=== PATIENT | male | born 1955 | race Caucasian/White ===

== ENCOUNTER → 2021-04-17 14:12 | Outpatient (CLI) | payer OTHER, SELFPAY ==
[2021-04-17 21:35] LABS: Prostate Specific Ag Screen 0.6 ng/ml (0.0-4.0)
== END ==
PROVIDERS: Urology; Visit Provider Pathology Anatomic Pathology & Clinical Pathology
DX: Z12.5 Encounter for screening for malignant neoplasm of prostate (principal)
CPT/HCPCS: G0103

== ENCOUNTER → 2021-07-06 14:31 | Outpatient (CLI) | payer OTHER, SELFPAY ==
--- NOTE | 2021-07-06 14:31 | CT_ITS ---
PROCEDURE: CT ABDOMEN PELVIS WO CON CLINICAL INDICATION: BACK PAIN Left-sided abdominal and back pain COMPARISON: No exams were available for comparison TECHNIQUE: Axial images obtained with sagittal and coronal reformats. All CT scans at the facility use one or more dose reduction, viz: automated exposure control, ma/kV adjustment per patient size (including targeted exams where dose is matched to indication, i.e. head), or iterative reconstruction technique. FINDINGS: LOWER THORAX: There is dense consolidation in the left lower lobe posteriorly with air bronchograms consistent with pneumonia with small effusion. Pulmonary fibrotic changes are present in the lung bases. There is irregular increased density in the left infrahilar region which may be due to some scarring. Severe COPD changes. 7 mm nodule in the right lower lobe anteriorly. Faint haziness noted in the right middle lobe and right lower lobe as well as left upper lobe. The mediastinum is shifted toward the left. Suggest chest CT with IV contrast for further evaluation. ABDOMEN & PELVIS: The liver, gallbladder, and adrenal glands have an unremarkable unenhanced appearance. There is mild splenomegaly at 14 cm. No obvious renal calculi or hydronephrosis. Hypodensity is present along the upper pole of the left kidney at 1 cm may be due to small renal cyst. The pancreas is not well delineated due to sparse of the abdominal fat and lack of IV and oral contrast. There is a moderate amount of retained colonic feces throughout the colon. No evidence of appendicitis. Moderate amount of retained particles are present within the stomach which has an elongated appearance. The stomach extends inferiorly below the level of the umbilicus. There is central prostate calcification. Mild thickening of the urinary bladder. No acute bony findings. Multiple unopacified bowel loops in the abdomen or pelvis which could obscure or mimic pathology. If symptoms persist, consider repeat exam with IV and oral contrast.. IMPRESSION: 1. Severe left lower lobe pneumonia with small effusion. An underlying pulmonary mass could easily be obscured. Consider follow-up following adequate treatment for pneumonia. 2. COPD with pulmonary fibrotic changes in the lung bases with scattered areas of scarring as well as a 7 mm nodule in the right lower lobe. 3. Moderate amount of retained colonic feces with elongation of the stomach extending below the level of the umbilicus. Moderate amount of retained material within the stomach. 4. Multiple unopacified bowel loops in the abdomen or pelvis which could obscure or mimic pathology. If symptoms persist, consider repeat exam with IV and oral contrast. Dictated by: Anibal Garland MD 07/06/2021 15:48 Anibal Garland MD in [facility] 07/06/2021 15:48
== END ==
PROVIDERS: PCP Urology; Visit Provider Urology
DX: M54.9 Dorsalgia, unspecified (principal)
CPT/HCPCS: 74176

== ENCOUNTER → 2021-08-09 09:23 | Outpatient (CLI) | payer OTHER, SELFPAY ==
[2021-08-09 09:57] LABS: Chloride 104 mmol/L (98-107); Potassium 4.7 mmoL/L (3.5-5.1); Sodium 141 mmol/L (136-145)
[2021-08-09 10:00] LABS: Anion Gap 12.7 mEq/L (5-15); Blood Urea Nitrogen 16 mg/dl (9-20); Calcium 8.7 mg/dl (8.4-10.2); Carbon Dioxide 29 mmol/L (22.0-30.0); Estimated Glomerular Filt Rate 114 ml/min (>60); GFR (African American) 138 ML/MIN (>60); Glucose 101 mg/dl (74-100)
== END ==
PROVIDERS: PCP Family Medicine; Visit Provider Family Medicine
DX: Z01.818 Encounter for other preprocedural examination (principal)
CPT/HCPCS: 80048

== ENCOUNTER → 2021-08-10 12:22 | Outpatient (CLI) | payer OTHER, SELFPAY ==
--- NOTE | 2021-08-10 12:23 | CT_ITS ---
PROCEDURE: CT CHEST W CON CLINCAL INDICATION: seen on CT abd/pelvis Abnormal finding on CT abdomen pelvis COMPARISON: CT CT ABDOMEN PELVIS WO CON from 07/06/2021 TECHNIQUE: IV Contrast: 75ml Isovue 370 Axial images obtained with sagittal and coronal reformats. All CT scans at the facility use one or more dose reduction, viz: automated exposure control, ma/kV adjustment per patient size (including targeted exams where dose is matched to indication, i.e. head), or iterative reconstruction technique. FINDINGS: Airways are clear. There is severe predominantly paraseptal though central lobular emphysema is also present. There is extensive scarring at bilateral lung apices. There are numerous nodules and ground-glass opacities throughout the right lung, the largest of which measures 2.4 centimeters in the anterior segment right upper lobe. There are numerous ground-glass opacities in the left upper lobe there are multiple nodules in the left upper lobe, the largest of which measures 3.2 x 2.7 cm within the superior lingular segment left upper lobe. There is a large left lower lobe pneumonia involving nearly the entire left lower lobe. There is a nodule in the pleural space measuring 7 millimeters which could represent a reactive lymph node although neoplasm is not excluded. There is mediastinal lymphadenopathy with numerous enlarged mediastinal lymph nodes, the largest of which measures 1.7 centimeters. Visualized abdominal contents appear unremarkable other than a left renal cyst. There are no definite vascular filling defects. There is a sclerotic lesion within the right pedicle of the T10, presumably a bone island although sclerotic metastasis could have a similar appearance. IMPRESSION: 1. Large left lower lobe pneumonia involving nearly the entire left lower lobe. 2. Numerous ground-glass opacities and solid pulmonary nodules, the largest in the superior lingular segment left upper lobe measuring 3.2cm. 3. Mediastinal lymphadenopathy. 4. Severe paraseptal and centrilobular emphysema. 5. Fleischner society guidelines (2017) recommend CT at 3-6 months then at 18-24 months. However, due to the most suspicious nodule and the large pneumonia, repeat CT chest without contrast in 1 month is recommended to further assess for pulmonary neoplasm after treatment for pneumonia. Dictated by: Monica Silva MD 08/10/2021 13:55 Monica Silva MD in [facility] 08/10/2021 13:55
== END ==
PROVIDERS: PCP Family Medicine; Visit Provider Family Medicine
DX: R91.8 Other nonspecific abnormal finding of lung field (principal)
CPT/HCPCS: 71260; Q9967

== ENCOUNTER 2021-08-28 09:02 | Emergency (ER) | payer OTHER, SELFPAY ==
[2021-08-28 09:03] VITALS: BP 158/107; PULSE 75; RESP 18; TEMP 37.1; O2SAT 95; BMI 20.6
[2021-08-28 09:21] VITALS: BMI 20.6
[2021-08-28 09:32] LABS: Microscopic, Urine URINE MICROSCOPIC (MICROSCOPIC)
[2021-08-28 09:38] LABS: Appearance,Urine CLEAR (Clear); Bilirubin,Urine Negative (Negative); Blood, Urine 2+ (Negative); Color,Urine YELLOW (Yellow); Glucose,Urine (UA) Negative (Negative); Ketones,Urine Negative (Negative); Leukocyte Esterase,Urine Negative (Negative); Nitrate,Urine Negative (Negative); PH,Urine 5.5 (5.0-8.5); Protein,Urine Negative (Negative); Specific Gravity, Urine >= 1.030 (1.005-1.030); Urobilinogen,Urine 0.2 EU/dl (0.2)
--- NOTE | 2021-08-28 09:45 | CT_ITS ---
PROCEDURE: CT LUMBAR SPINE WO CON CLINICAL HISTORY: back pain COMPARISON: CT CT ABDOMEN PELVIS WO CON from 07/06/[address] CHEST W CON from 08/10/2021 TECHNIQUE: Axial images obtained with sagittal and coronal reformats. All CT scans at the facility use one or more dose reduction, viz: automated exposure control, ma/kV adjustment per patient size (including targeted exams where dose is matched to indication, i.e. head), or iterative reconstruction technique. FINDINGS: There is normal alignment. T12-L1: Unremarkable. L1-L2: Minimal anterior left lateral endplate spurring. L2-L3: Minimal concentric bulging disc with facet and ligamentum hypertrophic change. Anterior osteophyte at L3 superiorly L3-L4: Mild concentric bulging disc. Small anterior osteophyte at L3-L4. L4-5: Mild bulging disc which is somewhat eccentric toward the right with mild right lateral recess narrowing. L5-S1: Mild concentric bulging disc. No acute fracture or dislocation. A fairly well-circumscribed lucent areas present in the L3 vertebral body anteriorly measuring approximately 1 cm benign-appearing. Follow-up may confirm stability. Moderate amount of retained colonic feces. A left-sided pleural effusion/consolidation noted incompletely imaged. IMPRESSION: No acute fracture. Multilevel lumbar spondylosis. Please see above for detailed description at each level. Dictated by: Anibal Garland MD 08/28/2021 10:19 Anibal Garland MD in [facility] 08/28/2021 10:19
[2021-08-28 09:52] LABS: Amorphous Sediment,Urine 1+ /lpf
[2021-08-28 10:03] LABS: Basophils # 0.1 K/mm3 (0-0.2); Basophils % 0.9 % (0.1-2.0); Eosinophils # 0.2 K/mm3 (0.0-0.4); Hematocrit 43.1 % (42.0-52.0); Lymphocytes # 1.5 K/mm3 (0.7-4.5); Lymphocytes % 13.8 % (10-50); Mean Corpuscular HGB Conc 32.6 g/dL (31.8-35.4); Mean Corpuscular Hemoglobin 27.5 pg (27.0-31.2); Mean Corpuscular Volume 84.4 fl (80-94); Mean Platelet Volume 7.6 fl (7.4-10.4); Monocytes # 0.5 K/mm3 (0.1-1.0); Monocytes % 4.7 % (1.7-9.3); Neutrophils # 8.7 K/mm3 (1.8-7.8); Neutrophils % 78.7 % (37.0-80.0); Platelet Count 379 K/mm3 (142-424); Red Cell Distribution Width 14.9 % (11.5-17.5); White Blood Count 11.1 K/mm3 (4.8-10.8)
[2021-08-28 10:12] LABS: Alanine Aminotransferase 12 U/L (12-78); Albumin Level 3.9 g/dl (3.5-5.0); Albumin/Globulin Ratio 1.1 (1.1-1.8); Alkaline Phosphatase 106 U/L (38-126); Anion Gap 11.4 mEq/L (5-15); Aspartate Amino Transferase 24 U/L (17-59); Bilirubin,Total 0.2 mg/dl (0.2-1.3); Blood Urea Nitrogen 18 mg/dl (9-20); Calcium 9.1 mg/dl (8.4-10.2); Carbon Dioxide 31 mmol/L (22.0-30.0); Chloride 100 mmol/L (98-107); Creatinine Clearance Estimated 79 mL/min (50-200); Estimated Glomerular Filt Rate 114 ml/min (>60); GFR (African American) 137 ML/MIN (>60); Globulin 3.4 g/dL (1.3-3.2); Glucose 91 mg/dl (74-100); Potassium 4.4 mmoL/L (3.5-5.1); Sodium 138 mmol/L (136-145); Total Protein,Serum 7.3 g/dl (6.3-8.2)
--- NOTE | 2021-08-28 11:01 | PC.NURSE ---
Dr Murguia speaking with [facility] regarding pt scans
--- NOTE | 2021-08-28 11:11 | [facility].EDGENADL ---
ED Disposition Clinical Impression: Mediastinal adenopathy, Pulmonary nodules, Lung consolidation, Weight loss Low back pain Qualifiers: Chronicity: acute Back pain laterality: midline Sciatica presence: without sciatica Qualified Code(s): M54.50 - Low back pain, unspecified Disposition: Home, Self-Care Condition on Discharge: Fair Instructions: DI for Low Back Pain Additional Instructions: Percocet as needed for pain. See Dr. Fernandez, pulmonary doctor, today as scheduled. Follow-up with Dr. Viera in his office, call for appointment. Additional instructions for CONTROLLED SUBSTANCES: You have been prescribed a medication that is a controlled substance. Controlled substances include pain medications known as opiates and sedative nerve medications known as benzodiazepines. Tramadol, fioricet, and gabapentin are also controlled substances. Some common opiates include: Codeine (such as Tylenol #3) Hydrocodone (Vicodin, Lortab, Lorcet, [place]) Oxycodone (Percocet, Percodan, Oxycodone, Oxy IR) Some common benzodiazepines include: Diazepam (Valium) Lorazepam (Ativan) Alprazolam (Xanax) Clonazepam (Klonopin) Oxazepam (Serax) All of these controlled substances are highly addictive and frequently abused. Misuse can and frequently does lead to addiction as well as overdose and . Medication should be stored in a locked cabinet or other secure storage unit. Do not store the medication in a motor vehicle. Short term supplies, 3 days or less, are prescribed because of the highly addictive nature of the medication. Any of the controlled substance medication NOT taken should be disposed of properly and NOT SAVED. The recommended method of disposing of unused medications is: Place the medicines in a sealable plastic bag. If the medicine is a solid, crush it or add water to dissolve it. Add something undesirable (cat litter, coffee grounds, etc.) Dispose of sealed bag in household trash Do not flush or pour unused medicines down a sink or drain. Controlled substances should not be shared, given away or sold. Because of the addictive nature and frequent abuse, these medications are sometimes stolen. These medications should be kept in a safe place where they cannot be stolen. Do not keep them in your car or purse. Lost or stolen prescriptions for controlled substances WILL NOT BE REFILLED in this emergency department, regardless of whether a police report was filed. Prescriptions: Oxycodone HCl/Acetaminophen [Percocet 5/325mg tablet] 1 tab PO Q6HP PRN #10 tablet PRN Reason: Moderate To Severe Pain Transmission Status: Sent to [facility] #[id number] Referrals: Pranav Viera MD [Primary Care Provider] - - Critical Care Critical Care Time: No Attestation: On 08/28/21, the high probability of a clinically significant, sudden or life threatening deterioration of the following system(s) required my full and direct attention, intervention and personal management. The time I documented below is in addition to time spent performing reported procedures but includes the following listed in this critical care notation. Medical Decision Making - Bruce Inquiry Pt receiving controlled substance: Yes Bruce was queried for this patient: Yes Risks and benefits of using a controlled substance: were discussed with pt by me Vital Signs: 08/28/21 09:03 Temperature 98.7 F Temperature Source Oral Pulse Rate [Right Radial] 75 Respiratory Rate 18 Blood Pressure [Right Arm] 158/107 H Blood Pressure Mean [Right Arm] 124 Blood Pressure Source [Right Arm] Automatic Cuff Blood Pressure Position [Right Arm] Sitting 02 Sat by Pulse Oximetry 95 Oxygen Delivery Method Room Air - Lab Data Lab Results 08/28/21 09:18: Urine Color Yellow, Urine Appearance Clear, Urine pH 5.5, Ur Specific [place] >= 1.030, Urine Protein Negative, Urine Glucose (UA) Negative, Urine Ketones Negative, Urine Blood 2+, Urine Nitra
[2021-08-28 11:31] VITALS: BP 132/87; PULSE 87; RESP 18; TEMP 36.8; O2SAT 100
== END 2021-08-28 11:32 | disposition home or self-care (01) ==
PROVIDERS: Emergency Provider Emergency Medicine; PCP Family Medicine
DX: J18.1 Lobar pneumonia, unspecified organism (principal); R59.0 Localized enlarged lymph nodes; R91.8 Other nonspecific abnormal finding of lung field; F17.210 Nicotine dependence, cigarettes, uncomplicated
CPT/HCPCS: 36415; 72131; 80053; 81001; 85025; 96374; 99283

== ENCOUNTER 2021-08-30 15:30 | Emergency (ER) | payer OTHER, SELFPAY ==
[2021-08-30 15:32] VITALS: BP 132/109; PULSE 66; RESP 12; TEMP 37; O2SAT 98; BMI 20.6
--- NOTE | 2021-08-30 15:40 | ECG_ITS ---
APPROVED REPORT Exam: Resting ECG HR:69 bpm ECG Measurements Heart Rate 69 AXES MT 132 P 71 QRSd 100 QRS 87 QT 434 T 63 QTc 465 Conclusion Normal sinus rhythm Normal ECG Electronically signed by : Hernán Foster MD 08/30/2021 21:37:09
--- NOTE | 2021-08-30 15:45 | XR_ITS ---
PROCEDURE: XR CHEST 2V CLINICAL HISTORY: chest pain COMPARISON: CT CT CHEST W CON from 08/10/2021 FINDINGS: The cardiomediastinal silhouette and pulmonary vascularity are within normal limits. COPD with emphysematous changes in the apices and right lung base. There is dense consolidation in the left lower lobe with mediastinal shift toward the left consistent with left-sided volume loss. Air density is present within the area of consolidation and may be due to aerated lung or necrosis. There is an area of faint increased density in the right upper lobe possibly due to an underlying pulmonary nodule at 2.5 cm No acute bony abnormalities. IMPRESSION: Left lower lobe consolidation/volume loss with mediastinal shift toward the left with emphysema/COPD and suspected nodule in the right upper lobe. Please see recent chest CT report of 08/10/2021. Dictated by: Anibal Garland MD 08/30/2021 16:29 Anibal Garland MD in [facility] 08/30/2021 16:29
--- NOTE | 2021-08-30 15:46 | CT_ITS ---
PROCEDURE: CT HEAD/BRAIN WO CON CLINICAL INDICATION: ams Left facial drooping COMPARISON: CT CT CHEST W CON from 08/10/2021 TECHNIQUE: Axial images obtained. All CT scans at the facility use one or more dose reduction, viz: automated exposure control, ma/kV adjustment per patient size (including targeted exams where dose is matched to indication, i.e. head), or iterative reconstruction technique. FINDINGS: Multiple lesions of the brain are noted including a 2 cm hypodense lesion in the anterior aspect of the right occipital lobe medially at the temporal occipital junction which appears to extend into the lateral aspect of the corpus callosum with some mild edema. This could even represent a lesion within the occipital horn of the lateral ventricle. There is a hyperdense lesion in the right roman radiata with central lucency. This measures 1.2 cm with moderate [id number] amount of surrounding edema. 9 mm isodense lesion in the white matter of the right frontal lobe at anterior aspect of the roman radiata with mild edema. 14 mm cystic lesion in the right frontal lobe with mild edema. Hypodense lesion in the right frontal lobe along the cortex at 6 mm. 5 mm hypodense lesion along the vertex of the parietal lobe on the right. Low-density changes are present in the left occipital lobe posteriorly which could be edematous change from an underlying lesion. That lesion however is not visible on this unenhanced CT scan. There is minimal midline shift toward the left by approximately 4 mm. IMPRESSION: Multiple brain lesions as described above consistent with metastatic disease. These have a variable appearance ranging from hyperdense to cystic. The lesion with the most edema is in the right roman radiata. There is 4 mm midline shift toward the left Dictated by: Anibal Garland MD 08/30/2021 16:24 Anibal Garland MD in [facility] 08/30/2021 16:24
[2021-08-30 15:59] LABS: Basophils # 0.1 K/mm3 (0-0.2); Basophils % 0.8 % (0.1-2.0); Eosinophils # 0.3 K/mm3 (0.0-0.4); Eosinophils % 2.3 % (0.1-12.0); Hematocrit 41.4 % (42.0-52.0); Hemoglobin 13.6 g/dL (14.1-18.0); Lymphocytes # 1.9 K/mm3 (0.7-4.5); Lymphocytes % 16.7 % (10-50); Mean Corpuscular HGB Conc 32.8 g/dL (31.8-35.4); Mean Corpuscular Hemoglobin 27.8 pg (27.0-31.2); Mean Corpuscular Volume 84.9 fl (80-94); Mean Platelet Volume 7.5 fl (7.4-10.4); Monocytes # 0.6 K/mm3 (0.1-1.0); Monocytes % 5.5 % (1.7-9.3); Neutrophils # 8.6 K/mm3 (1.8-7.8); Neutrophils % 74.8 % (37.0-80.0); Platelet Count 360 K/mm3 (142-424); Red Blood Count 4.87 M/mm3 (4.60-6.20); Red Cell Distribution Width 14.9 % (11.5-17.5); White Blood Count 11.5 K/mm3 (4.8-10.8)
--- NOTE | 2021-08-30 16:00 | HMH.EDGENADL ---
ED Disposition Clinical Impression: Brain tumor Disposition: Home, Self-Care Condition on Discharge: Fair Instructions: DI for Brain Tumor and Brain Cancer, DI for Lung Cancer Additional Instructions: You have been evaluated for left hand incoordination, found on CT scan to have a lesion in your brain (brain tumor). This is likely from the newly diagnosed lung cancer. It is very important that you follow-up with [facility] hematology and oncology. They will call you tomorrow for an urgent appointment. Take 8 mg dexamethasone daily. Return to the emergency department at once if you have any new or worsening symptoms, weakness, numbness, tingling, any other concerns. You may also report directly to [facility] emergency department if you need to be admitted tomorrow or the next day. Prescriptions: dexAMETHasone [Dexamethasone] 6 mg PO BID #10 tab Transmission Status: Received by [facility] #[id number] Referrals: Pranav Viera MD [Primary Care Provider] - Time of Disposition: 17:59 - Critical Care Critical Care Time: No Attestation: On 08/30/21, the high probability of a clinically significant, sudden or life threatening deterioration of the following system(s) required my full and direct attention, intervention and personal management. The time I documented below is in addition to time spent performing reported procedures but includes the following listed in this critical care notation. Medical Decision Making - Medical Records Medical records reviewed: Yes: I reviewed the patient's medical records. - Bruce Inquiry Pt receiving controlled substance: No Vital Signs: 08/30/21 15:32 08/30/21 16:15 08/30/21 16:30 Temperature 98.6 F Temperature Source Oral Pulse Rate 64 63 Pulse Rate [Left Radial] 66 Respiratory Rate 12 19 20 Blood Pressure 128/88 122/89 Blood Pressure [Right Arm] 132/109 H Blood Pressure Mean [Right Arm] 116 Blood Pressure Source [Right Arm] Automatic Cuff Blood Pressure Position [Right Arm] Sitting 02 Sat by Pulse Oximetry 98 95 97 Oxygen Delivery Method Room Air 08/30/21 17:30 08/30/21 18:24 Temperature 98.6 F Temperature Source Pulse Rate 79 79 Pulse Rate [Left Radial] Respiratory Rate 14 14 Blood Pressure 153/98 H 153/98 H Blood Pressure [Right Arm] Blood Pressure Mean [Right Arm] Blood Pressure Source [Right Arm] Blood Pressure Position [Right Arm] 02 Sat by Pulse Oximetry 99 Oxygen Delivery Method Room Air - Lab Data Lab Results 08/30/21 15:45: WBC 11.5 H, RBC 4.87, Hgb 13.6 L, Hct 41.4 L, MCV 84.9, MCH 27.8, MCHC 32.8, RDW 14.9, Plt Count 360, MPV 7.5, Neut % (Auto) 74.8, Lymph % (Auto) 16.7, [place] % (Auto) 5.5, Eos % (Auto) 2.3, Baso % (Auto) 0.8, Neut # (Auto) 8.6 H, Lymph # (Auto) 1.9, [place] # (Auto) 0.6, Eos # (Auto) 0.3, Baso # (Auto) 0.1 08/30/21 15:45: Sodium 135 L, Potassium 4.5, Chloride 97 L, Carbon Dioxide 31 H, Anion Gap 11.5, BUN 18, Creatinine 0.70, Estimated GFR 114, Est GFR ( Amer) 137, Glucose 104 H, Calcium 9.0, Total Bilirubin 0.3, AST 22, ALT 10 L, Alkaline Phosphatase 99, Troponin I < 0.01, Total Protein 7.2, Albumin 3.9, Globulin 3.3 H, Albumin/Globulin Ratio 1.2 Result diagrams: 08/30/21 15:45 08/30/21 15:45 Orders (Tests/Meds): ED MEDICATIONS Discontinued Medications Generic Name Dose Route Start Last Admin Trade Name Freq PRN Reason Stop Dose Admin Dexamethasone Sodium Phosphate 10 mg 08/30/21 17:03 08/30/21 17:33 Dexamethasone 4mg/Ml 1ml Vial IV 08/30/21 17:04 10 mg ONCE ONE Administration - CT Data CT Scan: Head Time Received: 17:[address] Reviewed: Yes: I have reviewed the patient's CT results, I have viewed the radiologist's interpretation Preliminary Findings: Abnormal Findings Narrative: IMPRESSION: Multiple brain lesions as described above consistent with metastatic disease. These have a variable appearance ranging from hyperdense to
[2021-08-30 16:07] LABS: Chloride 97 mmol/L (98-107); Potassium 4.5 mmoL/L (3.5-5.1); Sodium 135 mmol/L (136-145)
[2021-08-30 16:10] LABS: Alanine Aminotransferase 10 U/L (12-78); Albumin Level 3.9 g/dl (3.5-5.0); Albumin/Globulin Ratio 1.2 (1.1-1.8); Alkaline Phosphatase 99 U/L (38-126); Anion Gap 11.5 mEq/L (5-15); Aspartate Amino Transferase 22 U/L (17-59); Bilirubin,Total 0.3 mg/dl (0.2-1.3); Blood Urea Nitrogen 18 mg/dl (9-20); Carbon Dioxide 31 mmol/L (22.0-30.0); Estimated Glomerular Filt Rate 114 ml/min (>60); GFR (African American) 137 ML/MIN (>60); Globulin 3.3 g/dL (1.3-3.2); Glucose 104 mg/dl (74-100); Total Protein,Serum 7.2 g/dl (6.3-8.2)
[2021-08-30 16:15] VITALS: BP 128/88; PULSE 64; RESP 19; O2SAT 95
[2021-08-30 16:30] VITALS: BP 122/89; PULSE 63; RESP 20; O2SAT 97
[2021-08-30 16:33] LABS: Troponin I < 0.01 ng/ml (0.00-0.034)
--- NOTE | 2021-08-30 17:26 | PC.NURSE ---
meal tray ordered
[2021-08-30 17:30] VITALS: BP 153/98; PULSE 79; RESP 14; O2SAT 99
--- NOTE | 2021-08-30 17:30 | PC.NURSE ---
Dr Guzmán just spoke with Dr Viera Calling [facility] at this time.
--- NOTE | 2021-08-30 17:46 | PC.NURSE ---
PT IS NOT GONNA BE TRANSFERRED AT THIS TIME HE IS GOING FOR A OFFICE VISIT ON FRIDAY AT AND DIRECT ADMIT HIM FROM THERE. PT AND FAMILY AWARE OF PLAN AND OK WITH IT
[2021-08-30 18:24] VITALS: BP 153/98; PULSE 79; RESP 14; TEMP 37; O2SAT 98
== END 2021-08-30 18:28 | disposition home or self-care (01) ==
PROVIDERS: Emergency Provider Emergency Medicine; PCP Family Medicine
DX: D49.6 Neoplasm of unspecified behavior of brain (principal); F17.210 Nicotine dependence, cigarettes, uncomplicated
CPT/HCPCS: 70450; 71046; 80053; 84484; 85025; 93005; 96374; 99282

== ENCOUNTER → 2021-08-31 07:50 | Outpatient (CLI) | payer OTHER, SELFPAY | PROVIDERS: PCP Family Medicine; Visit Provider Internal Medicine Pulmonary Disease | DX: R06.09 Other forms of dyspnea (principal) | CPT/HCPCS: 94060; 94726; 94729 ==

== ENCOUNTER → 2021-09-17 11:49 | Outpatient (CLI) | payer OTHER, SELFPAY ==
--- NOTE | 2021-09-17 13:00 | MR_ITS ---
PROCEDURE: MR HEAD/BRAIN WO/W CON CLINICAL INDICATION: BRAIN TUMOR COMPARISON: CT CT HEAD/BRAIN WO CON from 08/30/2021 TECHNIQUE: Routine multiplanar multi echo sequences are performed without and with gadolinium enhancement. FINDINGS: There are numerous enhancing lesions in both the supra and infratentorial region of the brain. These are too numerous to count. These lesions are in both frontal lobes, both parietal lobes, both occipital and temporal lobes. Bilateral cerebellar and central posterior cerebellar lesions the lesions vary in there are T1 character and demonstrate T2 hyperintensity. All but 1 lesion demonstrates ring-like enhancement. There is a lesion in the central aspect of the vermis measuring 1.5 by 1 cm hyperintense on T1 and T2 with some minimal peripheral contrast enhancement. The largest the largest lesion is in the medial aspect of the right temporal occipital junction measuring 2.1 x 1.7 cm with a mild amount of peripheral edema. There is a moderate amount of edema surrounding the right frontal and parietal lobe lesions. These lesions measure up to 1.5 x 0.8 cm. A lesion in the peripheral aspect of the right frontal lobe measures 1.8 x 1.6 cm with a mild amount of surrounding edema. There is mild midline shift to the left by approximately 4 mm at the mid aspect of the level of the lateral ventricles. No transtentorial or uncal herniation evident. There is a small enhancing lesion in the left aspect of the antonina at approximately 5 mm No obvious enhancing calvarial mass. The cerebellopontine angles, pituitary, optic chiasm, and corpus callosum and craniocervical junction are unremarkable. Small retention cyst is present in the sphenoid sinus posteriorly. The IMPRESSION: Numerous supratentorial and infratentorial enhancing lesions as described above consistent with diffuse brain metastasis. There is mild midline shift to the left of approximately 4 mm at the level of the mid aspect of the lateral ventricles. Dictated by: Anibal Garland MD 09/18/2021 12:52 Anibal Garland MD in [facility] 09/18/2021 12:52
== END ==
PROVIDERS: PCP Family Medicine; Visit Provider Internal Medicine Medical Oncology
DX: D49.6 Neoplasm of unspecified behavior of brain (principal)
CPT/HCPCS: 70553; A9576

== ENCOUNTER 2021-09-17 23:09 | Observation (INO) | payer OTHER, SELFPAY ==
--- NOTE | 2021-09-17 23:09 | ECG_ITS ---
APPROVED REPORT Exam: Resting ECG HR:64 bpm ECG Measurements Heart Rate 64 AXES CO 142 P 87 QRSd 98 QRS 95 QT 412 T 72 QTc 425 Conclusion Sinus bradycardia with occasional premature ventricular complexes Rightward axis Borderline ECG Electronically signed by : Hernán Foster MD 09/18/2021 21:50:28
[2021-09-17 23:11] VITALS: BP 137/97; PULSE 61; RESP 24; TEMP 36.6; O2SAT 95; BMI 20.6
--- NOTE | 2021-09-17 23:15 | XR_ITS ---
PROCEDURE INFORMATION: Exam: XR Chest Exam date and time: 09/17/2021 11:15 PM Age: 66 years old Clinical indication: Sternal or substernal pain; Patient HX: Cp starting tonight. HX left sided lung biopsy 09/13/21; Additional info: Chest pain TECHNIQUE: Imaging protocol: XR of the chest. Views: 2 views. COMPARISON: CR XR CHEST 2V 08/30/2021 3:53 PM FINDINGS: Lungs: Diffuse interstitial coarsening with volume loss within left hemithorax where there is hazy opacity base which is similar to prior examination. Pleural spaces: No pneumothorax. Heart/Mediastinum: No cardiomegaly. Bones/joints: Unremarkable. IMPRESSION: Diffuse interstitial coarsening with volume loss within left hemithorax where there is hazy opacity base which is similar to prior examination.
--- NOTE | 2021-09-17 23:27 | HMH.EDGENADL ---
ED Disposition Clinical Impression: Chest pain Qualifiers: Chest pain type: pleurodynia Qualified Code(s): R07.81 - Pleurodynia Disposition: Admitted as Observation Condition on Discharge: Fair Referrals: Pranav Viera MD [Primary Care Provider] - Time of Disposition: - Critical Care Critical Care Time: No Attestation: On 09/17/21, the high probability of a clinically significant, sudden or life threatening deterioration of the following system(s) required my full and direct attention, intervention and personal management. The time I documented below is in addition to time spent performing reported procedures but includes the following listed in this critical care notation. Medical Decision Making - Medical Records Medical records reviewed: Yes: I reviewed the patient's medical records. - Bruce Inquiry Pt receiving controlled substance: No Vital Signs: 09/17/21 23:11 09/18/21 00:00 09/18/21 00:30 Temperature 97.8 F Temperature Source Oral Pulse Rate 58 L 70 Pulse Rate [Left] 61 Respiratory Rate 24 22 29 H Blood Pressure 126/90 134/96 H Blood Pressure [Right Arm] 137/97 H Blood Pressure Mean [Right Arm] 110 02 Sat by Pulse Oximetry 95 97 96 Oxygen Delivery Method Room Air Room Air Room Air - Lab Data Lab Results 09/17/21 23:18: WBC 14.4 H, RBC 5.66, Hgb 15.6, Hct 47.8, MCV 84.4, MCH 27.6, MCHC 32.7, RDW 15.2, Plt Count 302, MPV 7.8, Neut % (Auto) 77.0, Lymph % (Auto) 15.5, [place] % (Auto) 5.0, Eos % (Auto) 1.6, Baso % (Auto) 1.0, Neut # (Auto) 11.1 H, Lymph # (Auto) 2.2, [place] # (Auto) 0.7, Eos # (Auto) 0.2, Baso # (Auto) 0.1 09/17/21 23:18: Sodium 133 L, Potassium 4.3, Chloride 96 L, Carbon Dioxide 32 H, Anion Gap 9.3, BUN 24 H, Creatinine 0.70, Estimated Creat Clear 79, Estimated GFR 114, Est GFR ( Amer) 137, Glucose 92, Calcium 9.7, Total Bilirubin 0.5, AST 22, ALT 14, Alkaline Phosphatase 96, Troponin I < 0.01, Total Protein 7.0, Albumin 3.9, Globulin 3.1, Albumin/Globulin Ratio 1.3 Result diagrams: 09/17/21 23:18 09/17/21 23:18 Orders (Tests/Meds): ED MEDICATIONS Discontinued Medications Generic Name Dose Route Start Last Admin Trade Name Jarrell PRN Reason Stop Dose Admin Aspirin 325 mg 09/17/21 23:16 09/17/21 23:26 Aspirin 325mg Tablet PO 09/17/21 23:17 325 mg ONCE ONE Administration ORDERS Category Date Time Status Troponin I Q3H Lab 09/18/21 02:30 Ordered Troponin I Q3H Lab 09/18/21 05:30 Ordered ECG Request by /Maicol Stat Y 09/17/21 23:15 Ordered - ECG Data Tracing #1 Sinus rhythm with ventricular to 64 bpm. QRS 98, QTc 425. Right axis deviation. No ST segment elevation. Few PVCs. No other arrhythmia - SHABBIR Score for Non-Stemi Age of Patient: 60-69 years old Heart Rate: 50-69 bpm Systolic Blood Pressure: 120-139 mmhg Serum Creatinine: 0.40-0.79 mg/dl CHF Killip Class: I-No CHF Other Risk Factors: None Non-Stemi Risk Score: 99 Medical Decision Narrative: In summary this is a 66-year-old male presenting to the emergency department with chest pain. Patient clinically stable on arrival. Vital signs within normal limits. Concern for ACS, vasospasm, lung mass, pneumothorax. Will obtain CBC, BMP, chest x-ray, EKG, troponin profile. Patient given 325 chewable aspirin. EKG shows sinus rhythm with occasional PVCs. No ST segment elevations. Chest x-ray shows no pneumothorax. There are hazy areas chronic changes, worse on the left. Known groundglass opacities and nodules, concerning for neoplasia. Initial laboratory results are reassuring. White count of 14,000. Initial troponin is undetectable. On reassessment, patient says he is chest pain-free. Repeat troponin shows no change. Very low concern for ACS. Given that there have been 2 - troponins and a reassuring EKG. Patient does not have tachycardia, hypoxia, pleuritic pain to suggest pulmonary embolism. Overall presentation is concerning for chest wall pain, li
[2021-09-17 23:39] LABS: Basophils # 0.1 K/mm3 (0-0.2); Eosinophils # 0.2 K/mm3 (0.0-0.4); Eosinophils % 1.6 % (0.1-12.0); Hematocrit 47.8 % (42.0-52.0); Hemoglobin 15.6 g/dL (14.1-18.0); Lymphocytes # 2.2 K/mm3 (0.7-4.5); Lymphocytes % 15.5 % (10-50); Mean Corpuscular HGB Conc 32.7 g/dL (31.8-35.4); Mean Corpuscular Hemoglobin 27.6 pg (27.0-31.2); Mean Corpuscular Volume 84.4 fl (80-94); Mean Platelet Volume 7.8 fl (7.4-10.4); Monocytes # 0.7 K/mm3 (0.1-1.0); Neutrophils # 11.1 K/mm3 (1.8-7.8); Platelet Count 302 K/mm3 (142-424); Red Blood Count 5.66 M/mm3 (4.60-6.20); Red Cell Distribution Width 15.2 % (11.5-17.5); White Blood Count 14.4 K/mm3 (4.8-10.8)
[2021-09-17 23:41] LABS: Alanine Aminotransferase 14 U/L (12-78); Albumin Level 3.9 g/dl (3.5-5.0); Albumin/Globulin Ratio 1.3 (1.1-1.8); Alkaline Phosphatase 96 U/L (38-126); Anion Gap 9.3 mEq/L (5-15); Aspartate Amino Transferase 22 U/L (17-59); Bilirubin,Total 0.5 mg/dl (0.2-1.3); Blood Urea Nitrogen 24 mg/dl (9-20); Calcium 9.7 mg/dl (8.4-10.2); Carbon Dioxide 32 mmol/L (22.0-30.0); Chloride 96 mmol/L (98-107); Creatinine Clearance Estimated 79 mL/min (50-200); Estimated Glomerular Filt Rate 114 ml/min (>60); GFR (African American) 137 ML/MIN (>60); Globulin 3.1 g/dL (1.3-3.2); Glucose 92 mg/dl (74-100); Potassium 4.3 mmoL/L (3.5-5.1); Sodium 133 mmol/L (136-145)
[2021-09-18] VITALS (14 sets, daily range): BP systolic 108–135; BP diastolic 66–100; PULSE 51–87; RESP 14–29; TEMP 36.3–37.3; O2SAT 94–99; BMI 18.5; BMI 18.3
[2021-09-18 00:04] LABS: Troponin I < 0.01 ng/ml (0.00-0.034)
--- NOTE | 2021-09-18 01:20 | PC.NURSE ---
states she would like a 2hr troponin (1274).
[2021-09-18 02:04] LABS: Coronavirus 19, PCR Not Detected (NotDetected); Influenza A, PCR Not Detected (NotDetected); Influenza B, PCR Not Detected (NotDetected)
[2021-09-18 02:12] LABS: Troponin I < 0.01 ng/ml (0.00-0.034)
--- NOTE | 2021-09-18 03:27 | PC.NURSE ---
patient up to floor via wheelchair at this time.
--- NOTE | 2021-09-18 08:00 | XR_ITS ---
PROCEDURE: XR CHEST PORTABLE CLINICAL HISTORY: chest pain COMPARISON: CT CT CHEST W CON from 08/10/2021 CR XR CHEST 2V from 08/30/2021 CR XR CHEST 2V from 09/17/2021 FINDINGS: The cardiomediastinal silhouette and pulmonary vascularity are within normal limits. COPD changes. Left lower lobe pneumonia once again noted with left effusion. Consolidation is more dense in the infrahilar region which could be due to greater consolidation or mass. Postobstructive process is a consideration. Repeat chest CT with contrast may be of further value. There are chronic changes in the right lower lobe. Biapical pleural thickening. No acute bony abnormalities. IMPRESSION: Persistent opacification in the left lower lobe which may be due to a combination of pneumonia and effusion. The opacification is more dense in the infrahilar region which could be related to volume loss or mass. CT with contrast to follow-up to the older exam may provide further evaluation. Dictated by: Anibal Garland MD 09/18/2021 08:45 Anibal Garland MD in OV 09/18/2021 08:45
--- NOTE | 2021-09-18 08:27 | HMH.PHAVTE ---
[facility] VTE Monitoring - Patient Demographics Admission date: 09/18/21 Report Date: 09/18/21 Time: 08:27 Allergies/Adverse Reactions: Patient Allergies No Known Allergies Allergy (Verified 08/30/21 13:57) Height: 1.91 m Weight: 67.143 kg Patient Problems: Current Active Problems Chest pain (Acute) - VTE Risk Labs: VTE Related Lab Results Hgb 15.6 g/dL (14.1-18.0) 09/17/21 23:18 Hct 47.8 % (42.0-52.0) 09/17/21 23:18 Plt Count 302 K/mm3 (142-424) 09/17/21 23:18 BUN 24 mg/dl (9-20) H 09/17/21 23:18 Creatinine 0.70 mg/dl (0.66-1.25) 09/17/21 23:18 Estimated Creat Clear 79 mL/min (50-200) 09/17/21 23:18 Was VTE Risk Assessment Performed: Yes VTE Risk Level: Moderate Risk Clinical Trial Participant: No - Prophylaxis VTE Prophylaxis Ordered?: Yes Types of VTE Prophylaxis: TEDS Knee High
--- NOTE | 2021-09-18 08:46 | HMH.HP ---
*Admission Date: 09/18/21 *Chief complaint: Chest Pain *History of present illness: 66-year-old white male presented to the emergency department for onset of acute right sided chest pain yesterday lasting about 1 hour in duration. He describes it as a increasing fullness and squeezing discomfort in the chest to the point that he was having difficulty breathing. Similar episode 1 week ago. Patient was seen in the ER and was admitted for observation and further evaluation. EKG on admission showed sinus rhythm with right axis deviation otherwise unremarkable. Troponins overnight have returned normal x2. Upon further questioning the patient notes early satiety with about a 30 pound weight loss in the last couple months. He denies the feeling of his food getting hung up in his esophagus nor any history of vomiting. He does relate a significant history of heartburn. Patient has no prior history of coronary artery disease, he denies hypertension, hyperlipidemia, diabetes but he does carry a strong family history of coronary artery disease. He does smoke up to 2-1/2 packs a day and has for 50 years. Patient states he recently quit with the recent diagnosis of potential lung cancer and biopsy of his left lung last week. Results of which are pending at this time. Cardiology consulted for evaluation recommendations (Per Dc BRENNER). [facility] History I have reviewed the patient's past medical history: Yes Medical History: Reports:: BPH, Cancer Denies:: Diabetes Mellitus Type 1, Diabetes Mellitus Type 2, MRSA *Have you ever received a pneumonia vaccine?: No *Have you received a flu vaccine this season?: No Other Surgeries: Yes: No Previous Surgery Amputation: No Fractures: No - *Social History Last grade of school completed: High school graduate Smoking Status: Former smoker Tobacco Type: cigarettes # Packs/Day (cigarettes): 2 Smoking End Date: 2 weeks ago Alcohol Intake: former Alcohol Intake Frequency:: a few times a month Substance Use Type: denies use *Occupational Status:: employed Household Members: significant other, children *Travel in the last 8 weeks: None Family Hx:: Hyperlipidemia, Diabetes, Heart Attack Review of Systems - Review of Systems Review of systems:: pertinent systems reviewed and negative unless documented below - Constitutional Reports fatigue, Reports lack of energy - Eyes Denies blurry vision, Denies double vision - ENT Denies bleeding gums, Denies lip swelling - *Cardiovascular Reports chest pain, Reports chest pain at rest, Reports shortness of breath, Reports shortness of breath with activity - *Respiratory Reports cough, Reports shortness of breath, Reports shortness of breath with activity - *Gastrointestinal Reports heartburn, Reports feeling full early - *Musculoskeletal Denies abnormal walking, Denies muscle cramps - Integumentary/Breasts Denies bleeding lesions, Denies itching - *Neurologic Denies headache(s), Denies numbness - Psychiatric Reports change in appetite, Denies depression - Endocrine Denies cold intolerance, Denies excessive sweating - Hematologic/Lymphatic Denies easy bleeding, Denies easy bruising - Allergic/Immunologic Denies GI upset with certain foods, Denies throat swelling Meds Home Medications Medication Instructions Recorded Confirmed Type oxybutynin chloride 10 mg 1 ea PO DAILY 07/17/21 09/18/21 History tablet,extended release 24 hr tamsulosin 0.4 mg capsule 1 cap PO ONCE 07/17/21 09/18/21 History oxycodone-acetaminophen 5 mg-325 1 tab PO Q4-6H PRN #30 tab 08/30/21 09/18/21 Rx mg tablet Albuterol Sulfate [Albuterol 1 inh INHALATION Q6HP PRN 09/18/21 09/18/21 History Sulfate Hfa] Amoxicillin/Potassium Clav 1 tab PO BID 09/18/21 09/18/21 History [Amox-Clav 875-125 mg Tablet] Pantoprazole Sodium 40 mg PO DAILY 09/18/21 09/18/21 History Umeclidinium Brm/Vilanterol Tr 1 inh INHALATION DAILY 09/18/21 09/18/21 History [An
--- NOTE | 2021-09-18 10:19 | CA_ITS ---
APPROVED REPORT EXAM: Comprehensive 2D, Doppler, and color-flow Echocardiogram Shoe Stamper: Malena Cervantes RVT Ht: 6 ft 3 in Wt: 148lbs BSA: 1.93 BP: 108/71 mmHg Indications: CP,[place],EX SMOKER 2D Dimensions LVOT 2.02 cm (M/F) 1.5-2.5 LA Volume 32.30 mL LA Volume Index 16.73 mL/m2 (M/F) 16-34 M-Mode Dimensions RVDd 2.99 cm (0.9-2.6) LA Diam 3.96 cm (1.9-4.0) LVDd 4.68 cm (3.5-5.7) Ao Diam 3.30 cm (2.0-3.7) LVDs 3.03 cm (3.5-5.7) IVSd 1.82 cm (0.6-1.1) PWd 0.65 cm (0.6-1.1) EF (Teich) 64.60% FS 35.30% EDV (Teich) 101.30 mL TAPSE 2.29 (<1.7) ESV (Teich) 35.90 mL LV Diastology E Decel Time 403.00 (160-240 msec) E/A Ratio 0.8 MED E' 6.40 (< 7 cm/sec) E'/MED E' Ratio 9.58 (>14) LAT E' 9.10 (<10 cm/sec) E/LAT E' Ratio 6.74 (>14) Mitral Valve MV E Max Cisco. 61.00 (40-130 cm/s) MV A Velocity 79.00 (40-130 cm/s) E/A Ratio 0.77 MV Decel. Time 403.00 (160-240 ms) MV PHT 118.00 ms Pulmonary Valve PV Peak Velocity 74.00 (50-150 cm/s) Tricuspid Valve TR P. Velocity 278.00 cm/s RAP Estimate 10.00 mmHg RVSP 40.90 mmHg Left Ventricle Left atrium is mildly enlarged, left ventricle is normal size, mild concentric left ventricular hypertrophy, visually estimated ejection fraction 55% with no regional wall motion abnormality, grade 1 diastolic dysfunction seen without tissue Doppler evidence of raise left atrial pressure. Right Ventricle Right atrium and right ventricle are mildly enlarged with normal contractility. Aortic Valve Aortic valve is minimally thickened and fibrosed, there is no aortic stenosis or aortic insufficiency. Mitral Valve Mitral leaflets are minimally thickened, there is mild mitral regurgitation. Tricuspid Valve Tricuspid valve grossly normal, there is mild tricuspid regurgitation, tricuspid regurgitation jet velocity is inadequate for calculation of the right ventricular systolic pressure. Pulmonic Valve Pulmonic valve is poorly visualized. Great Vessels Aortic root is normal size. Inferior vena cava is normal size with normal inspiratory collapse. Pericardium No significant pericardial effusion noted. Conclusion 1. Mild biatrial enlargement, normal left ventricular size, mild concentric left ventricular hypertrophy, visually estimated ejection fraction 55% with no regional wall motion abnormality, grade 1 diastolic dysfunction seen without tissue Doppler evidence of raise left atrial pressure. 2. Mildly enlarged right ventricle with normal contractility. 3. Mild mitral and tricuspid regurgitation. 4. No significant pericardial effusion noted. 5. Inferior vena cava normal size with normal inspiratory collapse. Electronically signed by : Jude Orlando MD 09/18/2021 18:56:49
--- NOTE | 2021-09-18 10:29 | HMH.CNCARD ---
History of Present Illness Consult date: 09/18/21 Requesting physician: Pranav Viera Consult reason: chest pain Chief complaint: chest pain Additional Medical History:: 1. Tobacco use, 2.5 packs/day x 50 years A. Suspected lung cancer with recent biopsy last week, results pending 2. Abnormal brain CT with suspected metastatic cancer, 08/30/2021 A. CVA-like symptoms with left side facial droop and left arm and leg weakness felt related to brain tumor 3. History of asbestos exposure 4. Strong FH of CAD in Father in his 60's, mother with A. fib and CAD/stents, brother with A. fib History of present illness: 66-year-old white male presented to the emergency department for onset of acute right sided chest pain yesterday lasting about 1 hour in duration. He describes it as a increasing fullness and squeezing discomfort in the chest to the point that he was having difficulty breathing. Similar episode 1 week ago. Patient was seen in the ER and was admitted for observation and further evaluation. EKG on admission showed sinus rhythm with right axis deviation otherwise unremarkable. Troponins overnight have returned normal x2. Upon further questioning the patient notes early satiety with about a 30 pound weight loss in the last couple months. He denies the feeling of his food getting hung up in his esophagus nor any history of vomiting. He does relate a significant history of heartburn. Patient has no prior history of coronary artery disease, he denies hypertension, hyperlipidemia, diabetes but he does carry a strong family history of coronary artery disease. He does smoke up to 2-1/2 packs a day and has for 50 years. Patient states he recently quit with the recent diagnosis of potential lung cancer and biopsy of his left lung last week. Results of which are pending at this time. Cardiology consulted for evaluation recommendations. [facility] History Medical History: Reports:: BPH, Cancer Denies:: Diabetes Mellitus Type 1, Diabetes Mellitus Type 2, MRSA *Have you ever received a pneumonia vaccine?: No *Have you received a flu vaccine this season?: No Other Surgeries: Yes: No Previous Surgery Amputation: No Fractures: No - *Social History Last grade of school completed: High school graduate Smoking Status: Former smoker Tobacco Type: cigarettes # Packs/Day (cigarettes): 2 Smoking End Date: 2 weeks ago Alcohol Intake: former Alcohol Intake Frequency:: a few times a month Substance Use Type: denies use *Occupational Status:: employed Household Members: significant other, children *Travel in the last 8 weeks: None Family Hx:: Hyperlipidemia, Diabetes, Heart Attack Meds Home Medications Medication Instructions Recorded Confirmed Type oxybutynin chloride 10 mg 1 ea PO DAILY 07/17/21 09/18/21 History tablet,extended release 24 hr tamsulosin 0.4 mg capsule 1 cap PO ONCE 07/17/21 09/18/21 History oxycodone-acetaminophen 5 mg-325 1 tab PO Q4-6H PRN #30 tab 08/30/21 09/18/21 Rx mg tablet Albuterol Sulfate [Albuterol 1 inh INHALATION Q6HP PRN 09/18/21 09/18/21 History Sulfate Hfa] Amoxicillin/Potassium Clav 1 tab PO BID 09/18/21 09/18/21 History [Amox-Clav 875-125 mg Tablet] Pantoprazole Sodium 40 mg PO DAILY 09/18/21 09/18/21 History Umeclidinium Brm/Vilanterol Tr 1 inh INHALATION DAILY 09/18/21 09/18/21 History [Anoro Ellipta] dexAMETHasone [Dexamethasone] 4 mg PO TID 09/18/21 09/18/21 History Allergies Allergy/AdvReac Type Severity Reaction Status Date / Time No Known Allergies Allergy Verified 08/30/21 13:57 Exam Vital signs and Labs for Last 24 Hours: Temp Pulse Resp BP Pulse Ox 98.4 F 64 18 108/71 L 98 09/18/21 08:00 09/18/21 08:00 09/18/21 08:00 09/18/21 08:00 09/18/21 08:00 Laboratory Results - last 24 hr 09/17/21 23:18: WBC 14.4 H, RBC 5.66, Hgb 15.6, Hct 47.8, MCV 84.4, MCH 27.6, MCHC 32.7, RDW 15.2, Plt Count 302, MPV 7.8, Neut % (Auto) 77.0, Lymph % (Auto) 15.5, [place] % (Au
--- NOTE | 2021-09-18 10:51 | HMH.PHAINT ---
Home medications verified with Dr. Schmitz's office.
--- NOTE | 2021-09-18 14:02 | DIET.NUTRFU ---
RD saw patient today to review nutritional status. He report 20# weight loss in the last 30 days. Was able to verify, office visit on 08/30 his weight was 160#, with CBW of 147#. Down 7.8% in 30 days- this is significant. Based on appearance of collar bones protruding, thin face and weight loss he is malnourished. RD reviewed supplements, high calorie/high protein choices and provided a handout. Encouraged him to improve his nutritional status prior to cancer tx if possible. He did not want to start anything at this time. Lunch meal intake was good at 75%
--- NOTE | 2021-09-18 17:58 | PC.NURSE ---
PT IS RESTING IN BED. PT STATES HE HAS SOME MILD DISCOMFORT IN THE LEFT SIDE OF THE ABDOMEN. NO COMPLAINTS OF CHEST PAIN OR SOA. PT STATES HE HAS NOT HAD A BOWEL MOVEMENT IN 6 DAYS. PT IS VERY ILL APPEARING. APPETITE CONTINUES TO BE POOR. DRINKING WELL. AMBULATES TO THE BATHROOM. VSS. CODE STATUS VERIFIED THIS SHIFT. PT STATES HE WANTS TO BE A DNR BUT IS OKAY WITH HIS HEART BEING SHOCKED. PT STATES HE DOES NOT WANT ANY FEEDING TUBES. NO CPR. NO BREATHING TUBE OR VENTILATOR. WILL CONTINUE TO MONITOR.
[2021-09-19] VITALS: BP 130/73; PULSE 60; PULSE 65; RESP 16; TEMP 36.4; O2SAT 97
[2021-09-19 04:00] VITALS: BP 132/68; PULSE 60; PULSE 64; RESP 16; TEMP 36.6; O2SAT 97
--- NOTE | 2021-09-19 04:22 | PC.NURSE ---
No acute changes noted this shift. Pt on room air with O2 remaining above 92%. No reports of pain this shift. VSS will continue to monitor.
[2021-09-19 05:22] VITALS: BMI 18.3
[2021-09-19 06:52] LABS: Basophils # 0.1 K/mm3 (0-0.2); Basophils % 0.7 % (0.1-2.0); Eosinophils % 0.1 % (0.1-12.0); Hematocrit 47.9 % (42.0-52.0); Hemoglobin 15.2 g/dL (14.1-18.0); Lymphocytes # 0.8 K/mm3 (0.7-4.5); Mean Corpuscular HGB Conc 31.7 g/dL (31.8-35.4); Mean Corpuscular Hemoglobin 27.3 pg (27.0-31.2); Mean Corpuscular Volume 86.2 fl (80-94); Mean Platelet Volume 8.1 fl (7.4-10.4); Monocytes # 0.2 K/mm3 (0.1-1.0); Monocytes % 1.8 % (1.7-9.3); Neutrophils # 12.3 K/mm3 (1.8-7.8); Neutrophils % 91.5 % (37.0-80.0); Platelet Count 298 K/mm3 (142-424); Red Blood Count 5.55 M/mm3 (4.60-6.20); Red Cell Distribution Width 15.4 % (11.5-17.5); White Blood Count 13.5 K/mm3 (4.8-10.8)
[2021-09-19 07:02] LABS: MANUAL DIFFERENTIAL MANUAL DIFFERENTIAL (MANUAL DIFF)
[2021-09-19 07:18] VITALS: BP 139/67; PULSE 55; RESP 18; TEMP 37.1; O2SAT 96
[2021-09-19 07:59] LABS: Lymphocytes % 8 % (10-50); Monocytes % 2 % (2-9); Neutrophils % 90 % (42-76); Total Cells Counted 100
[2021-09-19 08:00] VITALS: PULSE 70
[2021-09-19 08:00] LABS: Platelet Estimate Normal; RBC Morphology Normal
--- NOTE | 2021-09-19 08:46 | P.PN_ITS ---
Subjective Date: 09/19/21 Time: 08:46 Principal diagnosis: chest discomfort, suspected met cancer Interval history: 66 yo WM in bed in NAD. Still with GERD symptoms and constipation. PCP is addressing. Echo results relayed to patient. Nothing further to add from Cardiology standpoint. Exam Vital signs and Labs for Last 24 Hours: Temp Pulse Resp BP Pulse Ox 98.8 F 55 L 18 139/67 96 09/19/21 07:18 09/19/21 07:18 09/19/21 07:18 09/19/21 07:18 09/19/21 07:18 Laboratory Results - last 24 hr 09/19/21 05:12: WBC 13.5 H, RBC 5.55, Hgb 15.2, Hct 47.9, MCV 86.2, MCH 27.3, MCHC 31.7 L, RDW 15.4, Plt Count 298, MPV 8.1, Neut % (Auto) 91.5 H, Lymph % (Auto) 6.0 L, [place] % (Auto) 1.8, Eos % (Auto) 0.1, Baso % (Auto) 0.7, Neut # (Auto) 12.3 H, Lymph # (Auto) 0.8, [place] # (Auto) 0.2, Eos # (Auto) 0.0, Baso # (Auto) 0.1, Total Counted 100, Neutrophils % (Manual) 90 H, Lymphocytes % (Manual) 8 L, Monocytes % (Manual) 2, Platelet Estimate Normal, RBC Morphology Normal I & O for Last 24 hours: Intake & Output 09/16/21 09/17/21 09/18/21 09/19/21 11:59 11:59 11:59 11:59 Intake Total 120 / 120 880 / 880 Balance 120 / 120 880 / 880 Weight 148 lb 0.398 oz 147 lb 6.4 oz - Constitutional no acute distress - *Routine HEENT Exam Head: Present: normocephalic Eye: Present: EOMI, PERRL ENT: Present: mucous membranes moist - *Routine Neck Exam Present: supple. Absent: lymphadenopathy - *Routine Respiratory Exam Present: CTA bilaterally - *Routine Cardiovascular Exam Present: RRR - *Routine Abdominal Exam Present: soft, normoactive bowel sounds. Absent: tenderness - *Routine Extremities Exam Absent: cyanosis, clubbing, edema - *Routine Skin Exam Present: warm. Absent: rash - *Routine Neurological Exam Present: alert, oriented X3 Progress Note: A&P (1) Chest pain Status: Acute (2) Pulmonary nodules Status: Acute (3) Brain tumor Status: Acute (4) Tobacco abuse Status: Acute (5) Clubbing of fingers Status: Acute (6) COPD (chronic obstructive pulmonary disease) with emphysema Status: Acute Assessment and Plan for All Diagnoses:: 1. Atypical chest pain with unremarkable EKG and normal troponins x2. Echo shows normal LVEF with grade I diastolic dysfunction. No further work-up at thi s time pending results of the patient's lung biopsy in work-up of his abnormal brain CT and MRI. Etiology of his chest discomfort seems more GI in origin, PCP is working this up. 2. Tobacco use, patient relates discontinuation recently 3. Suspected lung cancer with metastasis to the brain. Defer to PCP and Pulmonary. Echo results: 1. Mild biatrial enlargement, normal left ventricular size, mild concentric left ventricular hypertrophy, visually estimated ejection fraction 55% with no regional wall motion abnormality, grade 1 diastolic dysfunction seen without tissue Doppler evidence of raise left atrial pressure. 2. Mildly enlarged right ventricle with normal contractility. 3. Mild mitral and tricuspid regurgitation. 4. No significant pericardial effusion noted. 5. Inferior vena cava normal size with normal inspiratory collapse. Electronically signed by : Jude Orlando MD 09/18/2021 18:56:49 Nothing further to add. Will sign off. Follow up PRN.
[2021-09-19 09:04] LABS: Anion Gap 6.5 mEq/L (5-15); Blood Urea Nitrogen 23 mg/dl (9-20); Calcium 9.2 mg/dl (8.4-10.2); Carbon Dioxide 36 mmol/L (22.0-30.0); Chloride 96 mmol/L (98-107); Creatinine Clearance Estimated 71 mL/min (50-200); Estimated Glomerular Filt Rate 114 ml/min (>60); GFR (African American) 137 ML/MIN (>60); Glucose 129 mg/dl (74-100); Potassium 4.5 mmoL/L (3.5-5.1); Sodium 134 mmol/L (136-145)
--- NOTE | 2021-09-19 09:31 | PC.NURSE ---
Full bottle of mag citrate NOT given to patient.
--- NOTE | 2021-09-19 10:28 | [facility].DCSUM ---
General - General Admission date:: 09/18/21 Discharge date: 09/19/21 HPI HPI: 66-year-old white male presented to the emergency department for onset of acute right sided chest pain yesterday lasting about 1 hour in duration. He describes it as a increasing fullness and squeezing discomfort in the chest to the point that he was having difficulty breathing. Similar episode 1 week ago. Patient was seen in the ER and was admitted for observation and further evaluation. EKG on admission showed sinus rhythm with right axis deviation otherwise unremarkable. Troponins overnight have returned normal x2. Upon further questioning the patient notes early satiety with about a 30 pound weight loss in the last couple months. He denies the feeling of his food getting hung up in his esophagus nor any history of vomiting. He does relate a significant history of heartburn. Patient has no prior history of coronary artery disease, he denies hypertension, hyperlipidemia, diabetes but he does carry a strong family history of coronary artery disease. He does smoke up to 2-1/2 packs a day and has for 50 years. Patient states he recently quit with the recent diagnosis of potential lung cancer and biopsy of his left lung last week. Results of which are pending at this time. Cardiology consulted for evaluation recommendations (Per Dc BRENNER). Hospital Course Hospital Course: Laboratory Tests 09/17/21 09/17/21 09/18/21 23:18 23:18 01:20 WBC 14.4 H RBC 5.66 Hgb 15.6 Hct 47.8 MCV 84.4 MCH 27.6 MCHC 32.7 RDW 15.2 Plt Count 302 MPV 7.8 Neut % (Auto) 77.0 Lymph % (Auto) 15.5 Mathews % (Auto) 5.0 Eos % (Auto) 1.6 Baso % (Auto) 1.0 Neut # (Auto) 11.1 H Lymph # (Auto) 2.2 Mathews # (Auto) 0.7 Eos # (Auto) 0.2 Baso # (Auto) 0.1 Total Counted Neutrophils % (Manual) Lymphocytes % (Manual) Monocytes % (Manual) Platelet Estimate RBC Morphology Sodium 133 L Potassium 4.3 Chloride 96 L Carbon Dioxide 32 H Anion Gap 9.3 BUN 24 H Creatinine 0.70 Estimated Creat Clear 79 Estimated GFR 114 Est GFR ( Amer) 137 Glucose 92 Calcium 9.7 Total Bilirubin 0.5 AST 22 ALT 14 Alkaline Phosphatase 96 Troponin I < 0.01 < 0.01 Total Protein 7.0 Albumin 3.9 Globulin 3.1 Albumin/Globulin Ratio 1.3 SARS-CoV-2 (PCR) Influenza A Untype (PCR) Influenza Type B (PCR) 09/18/21 09/19/21 09/19/21 01:58 05:12 05:12 WBC 13.5 H RBC 5.55 Hgb 15.2 Hct 47.9 MCV 86.2 MCH 27.3 MCHC 31.7 L RDW 15.4 Plt Count 298 MPV 8.1 Neut % (Auto) 91.5 H Lymph % (Auto) 6.0 L Mathews % (Auto) 1.8 Eos % (Auto) 0.1 Baso % (Auto) 0.7 Neut # (Auto) 12.3 H Lymph # (Auto) 0.8 Mathews # (Auto) 0.2 Eos # (Auto) 0.0 Baso # (Auto) 0.1 Total Counted 100 Neutrophils % (Manual) 90 H Lymphocytes % (Manual) 8 L Monocytes % (Manual) 2 Platelet Estimate Normal RBC Morphology Normal Sodium 134 L Potassium 4.5 Chloride 96 L Carbon Dioxide 36 H Anion Gap 6.5 BUN 23 H Creatinine 0.70 Estimated Creat Clear 71 Estimated GFR 114 Est GFR ( Amer) 137 Glucose 129 H Calcium 9.2 Total Bilirubin AST ALT Alkaline Phosphatase Troponin I Total Protein Albumin Globulin Albumin/Globulin Ratio SARS-CoV-2 (PCR) Not detected Influenza A Untype (PCR) Not detected Influenza Type B (PCR) Not detected Ordering Physician: Amy Guzmán DO Date of Service: 09/17/21 Procedure(s): XR chest 2V Accession Number(s): [id number] cc: Kaleb Brannon MD; Pranav Viera MD~ PROCEDURE INFORMATION: Exam: XR Chest Exam date and time: 09/17/2021 11:15 PM Age: 66 years old Clinical indication: Sternal or substernal pain; Patient HX: Cp starting tonight. HX left sided lung biops
== END 2021-09-19 10:30 | disposition home or self-care (01) ==
LOC: ER 09-18 01:24 → 2ND 09-18 02:54
PROVIDERS: Nurse Practitioner Family; Admitting Provider Family Medicine; Emergency Provider Emergency Medicine; PCP Family Medicine; Visit Provider Family Medicine
DX: R07.81 Pleurodynia (principal); R91.8 Other nonspecific abnormal finding of lung field; D49.6 Neoplasm of unspecified behavior of brain; R68.3 Clubbing of fingers; J43.9 Emphysema, unspecified; Z20.822 Contact with and (suspected) exposure to COVID-19; Z82.49 Family history of ischemic heart disease and other diseases of the circulatory system; Z79.899 Other long term (current) drug therapy
CPT/HCPCS: 36415; 71045; 71046; 80048; 80053; 84484; 85007; 85025; 93005; 93306; 96374; 96375; 99284; C9803; G0378; J2405; U0003; U0005

== ENCOUNTER 2021-10-10 14:23 | Emergency (ER) | payer OTHER, SELFPAY ==
[2021-10-10 14:35] VITALS: BP 0/0; PULSE 0; RESP 0; TEMP -17.7; TEMP 0; O2SAT 0
--- NOTE | 2021-10-10 14:35 | PC.NURSE ---
pt daughter requested to registration to speak the ER staff. Went to waiting room to speak with pt daughter, she states that she has heard back from pt oncologist, states oncologist told her that if we couldn't transfer pt to [facility] now then I (daughter) need to take him (pt) to [facility] now . Explained to pt daughter that pt has not yet been seen by ER MD so we are not able to go ahead and transfer him prior to the doctor seeing him. Pt daughter verbalized understanding, states she would rather go ahead and take pt on to [facility] by their personal vehicle. Went back to ER explained to pt what daughter had said, pt verbalized understanding, pt wheeled out to pt daughter car in wheelchair. pt LWBS
== END 2021-10-10 14:35 | disposition left against medical advice (07) ==
PROVIDERS: Emergency Provider Internal Medicine Critical Care Medicine; PCP Emergency Medicine
DX: Z53.21 Procedure and treatment not carried out due to patient leaving prior to being seen by health care provider (principal)
CPT/HCPCS: 99211